=== PATIENT | female | born 1980 | race Caucasian/White ===

== ENCOUNTER 2017-11-04 11:34 | Emergency (ER) | payer OTHER, MEDICAID, SELFPAY ==
[2017-11-04 11:35] VITALS: BP 158/99; PULSE 89; RESP 16; TEMP 36.9; O2SAT 95; BMI 35.6
--- NOTE | 2017-11-04 12:19 | ED.DCSUM_ITS ---
- ER Visit Summary Date of Service: 11/04/17 Chief Complaint: [] Left index finger laceration at work History of Present Illness: The patient is a 36 F [] was cutting bread suffered tip left index finger laceration comes in for evaluation tetanus status update no loss of function other complaints Physical Examination: [] The left index finger there is a very superficial laceration to the lateral tip nail now but uninvolved IP joint uninvolved full range of motion no signs of bony exposure this laceration barely breaks the skin , Test Results: [] Emergency Department Course and Treatment: []I explained to her we could provide wound management with Steri-Strips or sutures she preferred Steri- Strips area was sterilely cleansed, then Steri-Strips were applied standard sterile technique finger splint applied tetanus updated she is instructed on wound care is as a workers comp case all Worker's Comp. paperwork filled out and she is referred to to [facility]. care Treatment Plan: [] Disposition: [] Home stable Impression: [] 1 cm superficial laceration tip left index finger at work This note was generated with TrialScope dictation software. It may contain incorrect words, spelling, and punctuation that were not noted in review of the chart prior to signing ED Disposition - Plan for ED Patient: Chief Complaint: Laceration Referrals: Care Physician,No Primary [Primary Care Provider] -
--- NOTE | 2017-11-04 12:23 | DCINST.ED_ITS ---
ED Disposition - Plan for ED Patient: Chief Complaint: Laceration Instructions: ED Laceration All Referrals: Care Physician,No Primary [Primary Care Provider] - Corporate,[facility] [GROUP OF PHYSICIANS] -
--- NOTE | 2017-11-04 12:23 | ED.DEP ---
ED Disposition - Plan for ED Patient: Chief Complaint: Laceration Instructions: ED Laceration All Referrals: Care Physician,No Primary [Primary Care Provider] - Corporate,[facility] [GROUP OF PHYSICIANS] -
== END 2017-11-04 12:41 | disposition home or self-care (01) ==
PROVIDERS: Emergency Provider Emergency Medicine
DX: S61.211A Laceration without foreign body of left index finger without damage to nail, initial encounter (principal); W26.0XXA Contact with knife, initial encounter; Y93.9 Activity, unspecified; Y92.89 Other specified places as the place of occurrence of the external cause; Y99.9 Unspecified external cause status; Z23 Encounter for immunization
CPT/HCPCS: 99283

== ENCOUNTER → 2018-11-19 16:04 | Outpatient (CLI) | payer MEDICAID, SELFPAY ==
[2018-11-19 22:37] LABS: Chlamydia Trachomatis by PCR Negative (Negative); Neisserai gonorrhoeae by PCR Negative (Negative); Probe Check PASS; Sample Adequacy Control PASS; Specimen Processing Control PASS
[2018-11-22 17:06] LABS: HPV Reflexed? NOT INDICATED
== END ==
PROVIDERS: Visit Provider Obstetrics & Gynecology
DX: Z12.4 Encounter for screening for malignant neoplasm of cervix (principal); Z11.3 Encounter for screening for infections with a predominantly sexual mode of transmission
CPT/HCPCS: 87491; 87591; 88175; G0145

== ENCOUNTER → 2018-12-17 14:47 | Outpatient (CLI) | payer MEDICAID, SELFPAY ==
[2018-12-17 16:00] LABS: Color, Urine Yellow (Yellow); Glucose, Dipstick Normal (Normal); Ketone-Dipstick 5 mg/dl (Negative); Leukocyte Esterase-Dipstick 25 /ul (Negative); Nitrite-Dipstick Negative (Negative); Occult Blood-Urine Negative /ul (Negative); Protein-Dipstick Negative (Negative); Specific Gravity, Urine 1.025 (1.002-1.030); Urine Bilirubin Dipstick Negative (Negative); Urine Clarity Clear (Clear); Urine Urobilinogen Normal (Normal)
[2018-12-17 16:07] LABS: COTININE Drug Screen Positive (<200 ng/mL)
[2018-12-17 16:08] LABS: Absolute Lymphocyte Count 1.96 X10^3/ul (0.83-4.51); Absolute Neutrophil Count 5.3 X10^3/uL (2.0-7.7); Basophil# 0.01 X10^3/uL; Basophil% 0.1 % (0-1); Eosinophil# 0.19 X10^3/uL; Eosinophils% 2.4 % (0-5); Hematocrit 37.9 % (37-47); Hemoglobin 12.4 g/dl (12.0-15.0); Lymphocyte # 1.96 X10^3/ul (4.0); Lymphocyte % 24.4 % (19-41); Mean Corp Hgb Conc 32.7 g/gl (32-36); Mean Corpuscular Hgb 28.1 pg (27.0-32.0); Mean Corpuscular Volume 85.9 fL (81-99); Mean Platelet Vol. 10.8 fl (6.2-12.0); Monocyte# 0.54 X10^3/uL; Monocyte% 6.7 % (0-10); Neutrophil # 5.32 X10^3/uL (2.7-7.7); Neutrophil % 66.2 % (47-70); Platelet Count 273 K/mm3 (150-450); RBC Distribution Width CV 13.3 % (11.6-14.6); Red Blood Count 4.41 M/mm3 (4.2-5.4)
[2018-12-17 16:09] LABS: POSITIVE COUNT NO; POSITIVE DIFFERENTIAL NO; POSITIVE MORPHOLOGY NO
[2018-12-17 16:11] LABS: Amphetamine Urine VISTA NEGATIVE (<1000 ng/mL); Barbiturate Urine VISTA NEGATIVE (< 200 ng/mL); Benzodiazepine Urine VISTA NEGATIVE (< 200 ng/mL); Vista UDS pH Range 5
[2018-12-17 16:12] LABS: Cocaine Urine VISTA NEGATIVE (< 300 ng/mL); Ecstacy Urine VISTA NEGATIVE (< 500 ng/mL); Methadone Urine VISTA NEGATIVE (< 300 ng/mL); PCP Urine VISTA NEGATIVE (< 25 ng/mL); THC Urine VISTA NEGATIVE (< 50 ng/mL)
[2018-12-17 16:30] LABS: Thyroid Stim Hormone (TSH) 2.33 uIU/mL (0.358-3.74)
[2018-12-17 18:28] LABS: HIV - WCH Non-Reactive (Nonreactive); Rubella IgG 64.8 IU/mL
[2018-12-20 01:35] LABS: Prenatal RPR NONREACTIVE (NONREACTIVE)
[2018-12-20 12:54] LABS: HEPATITIS B SURFACE AG Negative (Negative); Hep C Antibodies <0.1 s/co ratio (0.0-0.9)
== END ==
PROVIDERS: Visit Provider Obstetrics & Gynecology
DX: Z34.81 Encounter for supervision of other normal pregnancy, first trimester (principal)
CPT/HCPCS: 36415; 80307; 81002; 84443; 85025; 86703; 86762; 86803; 87340

== ENCOUNTER → 2019-01-30 13:37 | Outpatient (CLI) | payer MEDICAID, SELFPAY | PROVIDERS: Referring Provider Obstetrics & Gynecology; Visit Provider Obstetrics & Gynecology | DX: O26.892 Other specified pregnancy related conditions, second trimester (principal); R30.0 Dysuria; R33.9 Retention of urine, unspecified; Z3A.00 Weeks of gestation of pregnancy not specified | CPT/HCPCS: 87086; 87088; 87186 ==

== ENCOUNTER → 2019-03-06 10:22 | Outpatient (CLI) | payer MEDICAID, SELFPAY | PROVIDERS: Visit Provider Obstetrics & Gynecology | DX: R30.0 Dysuria (principal) | CPT/HCPCS: 87086; 87088 ==

== ENCOUNTER → 2019-04-16 13:23 | Outpatient (CLI) | payer MEDICAID, SELFPAY ==
[2019-04-16 14:05] LABS: Hematocrit 36.2 % (37-47); Hemoglobin 12.1 g/dL (12.0-15.0); Mean Corp Hgb Conc 33.4 g/dL (32-36); Mean Corpuscular Hgb 30.6 pg (27.0-32.0); Mean Corpuscular Volume 91.6 fL (81-99); Mean Platelet Vol. 11.1 fl (6.2-12.0); Platelet Count 204 K/mm3 (150-450); RBC Distribution Width CV 12.3 % (11.6-14.6); Red Blood Count 3.95 M/mm3 (4.2-5.4); White Blood Count 9.3 K/mm3 (4.4-11.0)
[2019-04-16 14:28] LABS: Glucose Challenge Gest 1H 50g 99 mg/dL (70-140)
== END ==
PROVIDERS: Visit Provider Obstetrics & Gynecology
DX: Z34.83 Encounter for supervision of other normal pregnancy, third trimester (principal)
CPT/HCPCS: 36415; 82950; 85027

== ENCOUNTER → 2019-06-02 12:04 | Outpatient (CLI) | payer MEDICAID, SELFPAY ==
[2019-06-02 13:27] LABS: Hematocrit 35.4 % (37-47); Hemoglobin 11.7 g/dL (12.0-15.0); Mean Corp Hgb Conc 33.1 g/dL (32-36); Mean Corpuscular Volume 90.8 fL (81-99); Mean Platelet Vol. 11.9 fl (6.2-12.0); Platelet Count 202 K/mm3 (150-450); RBC Distribution Width CV 12.8 % (11.6-14.6); RBC Distribution Width SD 41.9 fl (35.1-43.9); White Blood Count 9.1 K/mm3 (4.4-11.0)
[2019-06-02 13:33] LABS: Prothrombin Time (Protime)PT. 12.7 SECONDS (11.7-14.9)
[2019-06-02 13:34] LABS: Partial Thromboplast Time 27.5 Seconds (24.1-36.2)
[2019-06-02 13:43] LABS: AST(SGOT) 26 U/L (15-37); Alanine Aminotransfer ALT/SGPT 29 U/L (13-56); Uric Acid 3.3 mg/dL (2.6-6.0)
== END ==
PROVIDERS: Visit Provider Obstetrics & Gynecology
DX: O13.9 Gestational [pregnancy-induced] hypertension without significant proteinuria, unspecified trimester (principal)
CPT/HCPCS: 36415; 84450; 84460; 84550; 85027; 85610; 85730; 87081

== ENCOUNTER → 2019-06-04 11:10 | Outpatient (CLI) | payer MEDICAID, SELFPAY ==
[2019-06-04 14:22] LABS: 24 Hour Urine Protein 331.6 mg/24HR (<150 MG/24HR); 24HR. UA Prot. Total Volume 1375 mL; Protein, Urine (Random) 21.1 mg/dL (<11.9); Protein:Creat Ratio 275 mg/g CRE (0-200); Urine Protein (24 Hour) 21.1 mg/dL (<11.9)
== END ==
PROVIDERS: Visit Provider Obstetrics & Gynecology
DX: O13.9 Gestational [pregnancy-induced] hypertension without significant proteinuria, unspecified trimester (principal)
CPT/HCPCS: 81050; 82570; 84156

== ENCOUNTER 2019-06-06 17:20 | Inpatient (IN) | payer MEDICAID, SELFPAY ==
[2019-06-06 17:44] VITALS: BMI 39.6
[2019-06-06] MEDS: miSOPROStol 25 MCG TABLET PO ×2 (19:31→23:31)
--- NOTE | 2019-06-06 19:35 | HP.PCM_ITS ---
History and Physical ACOG ANTEPARTUM RECORD - HISTORY AND PHYSICAL (06/06/2019) Name: MARY SIMENTAL OB Physician: KAPIL Hurricane's Physician: Dr Bear Dixon ...................................................................... : 1980 Age: 38 Address: [address] [place] [address] [address] RUI S[address]ER, [id number] Phone: [phone] (O) [phone] Insurance Carrier: [facility] CLAIMS DEPT [phone] Emergency Contact: MICHOACANO ANTHONY [phone] ...................................................................... Final DOROTHY: 06/25/19 By Ultrasound: 12 weeks 6 days Mary is a 31yo at 37w 37w2d gestation by L=12w6d US admitted for medically necessary IOL for preeclampsia as evidenced by elevated blood pressures and proteinuria. She has a history of alcoholism, and IV drug abuse and is currently on Suboxone; She reports active FM, denies VB, LOF, SMITH, epigastric pain, nausea or visual disturbances. A Group B Strep culture is pending, she has no risk factors at this time. PARITY: (G-Total Pregnancies P-Fullterm,Premature,Induced AB,Spont AB, Ectopics, Multiple,Living) DOROTHY CONFIRMATION: By LMP: 09/18/18 Initial Exam: 06/25/19 By First Ultrasound Exam: 06/21/19 Final DOROTHY: 06/25/19 BLOOD TYPE: AFP: 1 HR PG: GBS: Original Ordering Provider: Aleksandra Kebede titer (>10 immune)-- Hepatatis B nick AG-- CULTURES:-- OB PROBLEM LIST: Declines AFP and CF tests. Recovering alcoholic/drug user. On Suboxone. Enjoying 2 1/2 yo daughter and new job at [employer] in [place]. FOB not involved but ok relationship with him. ALLERGIES: No Known Allergies MEDICATIONS: Colace 100 mg capsule one capsule po twice daily omeprazole 40 mg capsule,delayed release one tab PO daily One A Day Women's DHA 28 mg iron-800 mcg oral pack daily Suboxone 8 mg-2 mg sublingual film One pill by mouth twice a day Zofran 4 mg tablet one tab PO every 6 hours as needed for nausea SOCIAL HISTORY: Smoking - used to smoke but quit and denies 08/2016 Alcohol Use - Recovering Alcoholic Diet - balanced Diet and 2 cups coffee daily. Water intake tries for one liter daily. Lifestyle - moderate stress lifestyle Exercise - active work and Enc to walk 20 min day. 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 NONE now. Sexual Activity - ACTIVE ONE PARTNER Residence - rents an apartment and LIves w daughter. Place of - [place] Hours Worked - 30 wk Spouse-Sig Other Name - NOT involved. Children Name(s) - Marta PRIOR DELIVERY HISTORY DEL DATE GEST LAB WT LB WT OZ TYPE ANES LABOR TX Apr 01 8 0 0 0 Vag None No Aug 30 10 0 0 0 Vag None No Aug 12 6 0 0 0 Vag None No Jul 05 37 24 6 7 Vag Epidural No ANTEPARTUM FLOW CHART VISIT GE RTC FU F F OR U U DATE WK MD WKS HT PN HR M SS BP ED WT OR GL D EF ST __ ____ ___ __ __ ___ __ __ __ ___ __ __ __ ___ __ 18 May KW 6 37 V + + 170/100 1+ 253 tr - 1 50 -3 14 May ELB 1 37 V + + 160/94 0 248 tr - cl TH hi Apr JMW 2 35 + + 138/86 sl 249 tr - Apr 18 JMW 2 32 + + 110/68 0 241 tr - Mar 13 JMW 3 25 + + 136/80 0 238 tr - Feb 04 DS 4 19 ? + + 142/86 0 223 tr - January 03 JMW 4 17 + + 130/80 0 225 - - Nov 29 DS 4 12 ? + O 126/68 220 - - ANTEPARTUM NOTE(S): Jun 06 2019: see note Jun 02 2019: see note May 08 2019: Feeling Well,Good FM Apr 16 2019: feeling well. Glucola drawn today. Mar 12 2019: Glucola/Instructions Given, Good FM Jan 28 2019: comp u/s today, nausea increasing again Jan 16 2019: feeling well. Nausea seems to be getting better. Dec 17 2018: No problems COMPREHENSIVE ANTEPARTUM NOTE(S): Jun 06 2019: Mary is being seen for PNV. Pt denies smith, blurred vision, and dizziness. Repeat BP left side lying 150/70. Repeat sitting 152/90. AM Jun 06 2019: Elevaed blood pressures, denies visual changes, epigastric pain nausea or SMITH; reflexes 2+ bilateral LE, lungs cta; reports active FM, denies VB, LOF; reviewed labs, d/w Dr. Arita, consents read and signed, pt to [facility] within the hour for IOL; RTO 6 weeks for PP visit Jun 02 2019: Mary is here for visit. B/P is elevated today in office, 150/110 regular cuff, 160/94 large cuff. States very stressed about new baby and finances, childcare a huge issue. FOB is not involed and he will not be at all supportive. She is feeling good mvmt. Reviewed FM, SROM, and labor. GBS today, LARC consent signed but she will discuss further as not certain which one she is intested in. LMT May 08 2019: Feeling well; reports active FM; denies UCs, VB, LOF; discussed warning signs, s/s Labor, when to call/come in; RTO 2 weeks for PNV - KVW Mar 06 2019: Mary called @ 24 wks 1 day with burning, pain and frequency urination. Added to nurse schedule. Long dip CCMS showing sp gr 1.000, ph6, large blood, 2+. Per discussion w/Dr. Perry, urine sent for C+S. Rx Macrobid and Pyridium sent to [facility] in [place]. Reviewed instructions for taking meds w/pt. Continue to hydrate w/plenty of water. Jan 30 2019: Mary is here at 19 w 1 d for a UTI check. She states that since she woke up this morning that she has urgency, but can barely void. NKA confirmed. Pharmacy confirmed. Denies recent IC. Denies constipation. CCMS urine specimen obtained. Urine is tramaine and very cloudy. Long urine dip shows: LARGE leukocytes, 2+ protein, 3+ blood, pH is 5.0, and specific gravity is 1.030; all other values are NEG. Temp: 98.4 (orally), B/P: 116/72 (left arm, reg cuff, sitting). She reports good FM. Denies spotting/cramping. Encouraged to increase her water intake, she states that she has not been drinking enough water lately, but drank a lot of juice yesterday. Discussed sugars in juices, and that sugars can contribute to dehydration. Encouraged to drink less sugary drinks and to stop caffeine use at this time. Proper bathroom/bedroom hygiene discussed. She states that she started wearing a thong last week, discussed that it would be a good idea to start wearing underwear with a cotton crotch, she states that she will do this. Report to Dr. Elizondo, urine to be sent for C+S, and he escripted Macrobid and Pyridium to Mary's pharmacy. All orders relayed to Mary, she is aware of C+S result time being 2-3 days, to complete her entire dose of medication unless she hears otherwise from this office, that Pyridium will color her urine red-orange; she states that she understands all, and will call the office if her s/s do not improve or become worse. AW Jan 28 2019: Doing well. Anatomical survey US shows no anomalies, normal growth and placentation. Feeling movement. Dec 17 2018: Doing well except continued nausea and constipation. Colace prescribed. NOB nurse intake and labs done today. US c/w LMP dating. Dec 17 2019: Mary is here for NOB nurse visit w DOROTHY 06-25-19 planning a vag del at [facility] with an epidural, using Dr Bear Dixon for post disch ped care and to breastfeed. She is a G 5 P 1 with Sabs x 3. Mary has a 2 1/2 yo daughter with whom she lives. 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 She relates she is happier than she's ever been- is off drugs and alcohol, not smoking and is on Suboxone. Her daughter is her nick. FOB is not involved although they maintain a friendly if neutral relationship. Mary has NKA to meds. She experiences throat swelling if she eats salmon and has multiple allergies to dust and pollens. Her diet sounds balanced w two cups of coffee per day and about one liter of water. Suggested doubling that amount. Importance of protein in her diet discussed. She is busy and on her feet at work and just can't exercise. Walking 15-20 min daily suggested. Genetics Screening form completed noting no family issues. She declines AFP and CF tests. Warning signs in pg reviewed as well as reaching the office after hours, otc meds ok to take, wearing seatbelt very low on her abdomen, lifting restriction of 25# whenever possible to prevent back strain, She voices understanding. Detailed history updated. She has a copy of What to Expect. US done today and routine labs drawn. Mary had some issues with low milk supply with first baby and asks about likelihood of recurrence. Alana Dyer's book Making More Milk suggested as well as WIC or office Class. She is agreeable to these. Enc to call w any concerns. Visit lasted approx 40 min. Earline ALLEN. Nov 19 2018: Mary is being seen for missed menses. LMP 09-18-18. Pt is about 8 weeks and 6 days. DOROTHY 06-25-19. Medictiations and allergies are up to date. Pt is due for pap and cultures. information gone over and reviewed. AM REVIEW OF SYSTEMS: GENERAL - Denies fever, or chills SKIN - Denies rash, new skin lesions, or change in moles EYES - Denies blurred vision, or change in visual acuity EARS - Denies ear pain, or difficulty hearing NOSE - Denies nasal congestion, discharge, or bleeding MOUTH - Denies sore throat, or difficulty swallowing NECK - Denies pain or swelling RESPIRATORY - Denies shortness of breath, cough, wheezing CARDIOVASCULAR - Denies palpitations, chest pain, orthopnea, PND, peripheral edema, syncope or claudication GASTROINTESTINAL - Denies nausea, vomiting, diarrhea, constipation, Denies abdominal pain, melena and or bright red blood GENITOURINARY - Denies dysuria, frequency of urination, urgency, or hesitancy MUSCULOSKELETAL - Denies joint or muscle pain, or back pain NEUROLOGICAL - Denies localized numbness, weakness, or tingling PSYCHIATRIC - Denies depression, anxiety, substance abuse or suicide attempts ENDOCRINE - Denies heat or cold intolerance, weight loss or gain, increasing thirst HEMATO-IMMUNOLOGIC - Denies easy bruising, bleeding, oral ulcerations or recurrent infections GENETICS SCREENING: Age 35+ years: No Thalassemia: No Neural Tube Defect: No Down Syndrome: No HALLE-SACHS: No Sickle Cell Disease: No Hemophilia: No Musc. Dystrophy: No Cystic Fibrosis: No-declines screening [place] Chorea: No Mental Retardation: No Fragile X: No Other genetic: No Other defects: No SABs/still births: No Drugs since LMP: Yes INFECTION HISTORY: High risk AIDS: No High risk Hepatitis: No Exposed to TB: No Exposed to Herpes: No Rash/viral illness since LMP: No History of STD: No MENSTRUAL HISTORY: *Menses Amount/Duration: 6 daysMenses Regularity: RegularFrequency: monthlyMenarche (Age Onset): 15* PAST SUMMARY: PARITY: 1. Total Pregnancies............ 5 2. Full Term Pregnancies........ 1 3. Premature.................... 0 4. Abortions - Induced.......... 3 5. Abortions - Spontaneous...... 0 6. Ectopics..................... 0 7. Multiple Births.............. 0 8. Living Children.............. 1 PAST #1: Date of :.................. 08/20/10 Gestation Weeks:................ 10 Length of labor(hours):......... 0 Sex:............................ UNKNOWN Weight-lbs:............... 0 Weight-oz:................ 0 Type of Delivery:............... Vag Type of Anesthesia:............. None Place of Delivery:.............. HOME Treatment of Labor?:.... No Comment: TAB VIA [employer] FROM WEBSITE. PAST #2: Date of :.................. 08/20/11 Gestation Weeks:................ 6 Length of labor(hours):......... 0 Sex:............................ UNKNOWN Weight-lbs:............... 0 Weight-oz:................ 0 Type of Delivery:............... Vag Type of Anesthesia:............. None Place of Delivery:.............. HOME Treatment of Labor?:.... No Comment: TAB VIA [employer] PAST #3: Date of :.................. 03/20/13 Gestation Weeks:................ 8 Length of labor(hours):......... 0 Sex:............................ UNKNOWN Weight-lbs:............... 0 Weight-oz:................ 0 Type of Delivery:............... Vag Type of Anesthesia:............. None Place of Delivery:.............. HOME Treatment of Labor?:.... No Comment: TAB VIA [facility]. PAST #4: Date of :.................. 07/12/16 Gestation Weeks:................ 37 Length of labor(hours):......... 24 Sex:............................ F Weight-lbs:............... 6 Weight-oz:................ 7 Type of Delivery:............... Vag Type of Anesthesia:............. Epidural Place of Delivery:.............. Abi Treatment of Labor?:.... No Comment: LONG IND. Labs for : MARY SIMENTAL since 09/28/2018 ORDER DATEIN DESCRIPTION VALUE UNITS RANGE A+ COMMENT PROTEIN, URINE 24HR 06/04/19 NOTE Original Ordering Provider: Mary Arita UR COLLECT TIME 21.0 HOURS 24.0 LL UR TOTAL VOLUME 1375 mL URINE PROTEIN 21.1 mg/dL <11.9 H 24HR UR PROTEIN 331.6 mg/24HR <150 MG/24HR H PROTEIN+CREATININE RATIO,URINE 06/04/19 NOTE Original Ordering Provider: Mary Arita UR CREAT 76.80 mg/dL NO RANGE EST. PROTEIN,UR.RAN. 21.1 mg/dL <11.9 H PROT:CRE RATIO 275 mg/g CRE 0-200 H Reviewed by TEJAL ALANINE AMINOTRANSFERAS (SGPT) 06/02/19 NOTE Original Ordering Provider: Mary Arita ALTw 29 U/L 13-56 Reviewed by MARY AST(SGOT) 06/02/19 NOTE Original Ordering Provider: Mary Arita AST 26 U/L 15-37 Reviewed by MARY URIC ACID 06/02/19 NOTE Original Ordering Provider: Mary Arita URIC 3.3 mg/dL 2.6-6.0 The drugs N-Acetylcysteine and Metamizole may falsely depress this assay. Reviewed by MARY PARTIAL THROMBOPLAST TIME 06/02/19 NOTE Original Ordering Provider: Mary Arita PTT 27.5 Seconds 24.1-36.2 Reviewed by MARY PROTHROMBIN TIME W/INR 06/02/19 NOTE Original Ordering Provider: Mary Arita PROTIME 12.7 SECONDS 11.7-14.9 INR 1.0 Reviewed by MARY CBC-COMPLETE BLOOD CNT NO DIFF 06/02/19 NOTE Original Ordering Provider: Mary Arita WBC 9.1 K/mm3 4.4-11.0 RBC 3.90 M/mm3 4.2-5.4 L HGB 11.7 g/dL 12.0-15.0 L HCT 35.4 % 37-47 L MCV 90.8 fL 81-99 MCH 30.0 pg 27.0-32.0 MCHC 33.1 g/dL 32-36 RDW CV 12.8 % 11.6-14.6 RDW SD 41.9 fl 35.1-43.9 PLT 202 K/mm3 150-450 MPV 11.9 fl 6.2-12.0 Reviewed by MARY GLUCOSE CHALLENGE GEST 1H 50G 04/16/19 NOTE Original Ordering Provider: Tejal Perry GLU GEST 50G 1H 99 mg/dL 70-140 Reviewed by TEJAL CBC-COMPLETE BLOOD CNT NO DIFF 04/16/19 NOTE Original Ordering Provider: Tejal Perry WBC 9.3 K/mm3 4.4-11.0 RBC 3.95 M/mm3 4.2-5.4 L HGB 12.1 g/dL 12.0-15.0 HCT 36.2 % 37-47 L MCV 91.6 fL 81-99 MCH 30.6 pg 27.0-32.0 MCHC 33.4 g/dL 32-36 RDW CV 12.3 % 11.6-14.6 RDW SD 41.0 fl 35.1-43.9 PLT 204 K/mm3 150-450 MPV 11.1 fl 6.2-12.0 Reviewed by TEJAL STRANGE, URINE 03/06/19 NOTE Original Ordering Provider: Tejal Perry Urine Culture ORGANISM 1: Mixed Gram Pos AND Gram Neg Org [place] Count 11,000-25,000 MIX CULTURE Mixed contaminants. Submit a new specimen if indicated. Reviewed by TEJAL STRANGE, URINE 01/30/19 NOTE Original Ordering Provider: Gibran Elizondo Urine Culture ORGANISM 1: Presumptive E. coli [place] Count 25,000-50,000 ORGANISM 2: Mixed Gram Positive Organisms [place] Count 1000-10,000 Presumptive E. coli: REACTION Ampicillin $ <=2 S Ampicillin/Sulbactam $ <=2 S Cefazolin $ <=4 S Cefepime $ <=0.12 S Ceftazidime *NF <=1 S Ceftriaxone $ <=0.25 S Ciprofloxacin $ <=0.25 S Ertapenim $$$ <=0.12 S ESBL NEG Gentamicin $ <=1 S Imipenem *NF <=0.25 S Levofloxacin $ <=0.12 S Nitrofurantoin $ <=16 S Piperacillin/Tazobactam $$ <=4 S Tobramycin $ <=1 S Trimethoprim/Sulfametho $ <=20 S (NF) indicates non-formulary drug at [facility]. Approval by Infectious Disease Specialist required before non-formulary drugs may be ordered and/or dispensed. Reviewed by GIBRAN Reviewed by GIBRAN HEPATITIS C ANTIBODIES 12/17/18 NOTE Original Ordering Provider: Gibran Elizondo HEP C AB <0.1 s/co ratio 0.0-0.9 Negative: < 0.8 Indeterminate: 0.8 - 0.9 Positive: > 0.9 The CDC recommends that a positive HCV antibody result be followed up with a HCV Nucleic Acid Amplification test (971736). w Reviewed by GIBRAN HEPATITIS B SURFACE AG 12/17/18 NOTE Original Ordering Provider: Gibran Elizondo HB SURF AG Negative Negative Performed at: [address] [id number] Sheet Metal Fabricator: Jeanmarie Jung PhD, Phone: [phone] Reviewed by GIBRAN RPR 12/17/18 NOTE Original Ordering Provider: Gibran Elizondo RPR NONREACTIVE NONREACTIVE Reviewed by GIBRAN T AND S-NO CHARGE W/PNP 12/17/18 Reason for Type AND Screen/Red Cells: Surgery? N [facility]~[address] [place], [address]~ BLOOD TYPE GEL O POSITIVEw N AB SCREEN GEL NEGATIVE N Reviewed by GIBRAN HIV - [facility] 12/17/18 NOTE w Original Ordering Provider: Gibran Elizondo HIV - WC Non-Reactive Nonreactive Reviewed by GBIRAN RUBELLA IGG 12/17/18 NOTE Original Ordering Provider: Gibran Elizondo RUBELLA IGG 64.8 IU/mL Antibody results Interpretation of Immune Status < 5 IU/ml Presumed Non-immune 5 - < 10 IU/ml Equivocal > or = 10 IU/ml Presumed Immune Reviewed by GIBRAN THYROID STIM HORMONE (TSH) 12/17/18 NOTE w Original Ordering Provider: Gibran Elizondo TSH 2.33 uIU/mL 0.358-3.74 Reviewed by GIBRAN NICOTINE URINE DRUG SCREEN 12/17/18 NOTE Original Ordering Provider: Gibran Elizondo TO BE CONFIRMED CONFIRMATORY TESTING FOR ALL POSITIVE URINE DRUG SCREEN RESULTS WILL ONLY BE SENT OUT UPON PHYSICIAN ORDER. The results of Urine Drug Screen methods provide only preliminary analytical test results. A more specific alternate chemical method must be used in order to obtain a confirmed analytical result. Gas chromatography/mass spectrometery (GC/MS) is the preferred confirmatory method. Clinical consideration and professional judgement should be applied to any drug of abuse test result, particularly when preliminary positive results are used. COT DRG SCREEN Positive <200 ng/mL H Cotinine is the first-stage metabolite of Nicotine. Reviewed by GIBRAN URINE DRUG SCREEN (VISTA) 12/17/18 NOTE Original Ordering Provider: Gibran Elizondo TO BE CONFIRMED CONFIRMATORY TESTING FOR ALL POSITIVE URINE DRUG SCREEN RESULTS WILL ONLY BE SENT OUT UPON PHYSICIAN ORDER. VISTA Urine Drug Screen methods provide only preliminary analytical test results. A more specific alternate chemical method must be used in order to obtain a confirmed analytical result. Gas chromatography/mass spectrometery (GC/MS) is the preferred confirmatory method. Clinical consideration and professional judgement should be applied to any drug of abuse test result, particularly when preliminary positive results are used. URINE TCA TESTING MUST BE ORDERED SEPARATELY. USE TEST MNEMONIC: [place] UDS PH 5 AMPHETAMINES NEGATIVE <1000 ng/mL BARBITIURATES NEGATIVE < 200 ng/mL BENZODIAZIPINE NEGATIVE < 200 ng/mL COCAINE NEGATIVE < 300 ng/mL ECSTACY NEGATIVE < 500 ng/mL METHADONE NEGATIVE < 300 ng/mL OPIATES NEGATIVE < 300 ng/mL PCP NEGATIVE < 25 ng/mL THC NEGATIVE < 50 ng/mL Reviewed by GIBRAN CBC W/DIFF, AUTOMATED 12/17/18 NOTE Original Ordering Provider: Gibran Elizondo WBC 8.0 K/mm3 4.4-11.0 RBC 4.41 M/mm3 4.2-5.4 HGB 12.4 g/dl 12.0-15.0 HCT 37.9 % 37-47 MCV 85.9 fL 81-99 MCH 28.1 pg 27.0-32.0 MCHC 32.7 g/gl 32-36 RDW CV 13.3 % 11.6-14.6 RDW SD 41.0 fl 35.1-43.9 PLT 273 K/mm3 150-450 MPV 10.8 fl 6.2-12.0 NEUT% 66.2 % 47-70 LY% 24.4 % 19-41 MONO% 6.7 % 0-10 EO% 2.4 % 0-5 w BASO% 0.1 % 0-1 IM GRAN % 0.200 % 0.0-0.9 IG% - Immature Granulocytes (promyelocytes, myelocytes and metamyelocytes) > 1% indicates that a LEFT SHIFT is Present. ABSOLUTE NEUT 5.3 X10 3/uL 2.0-7.7 ABSOLUTE LYMPH 1.96 X10 3/ul 0.83-4.51 Reviewed by GIBRAN URINALYSIS, ROUTINE (DIPSTICK) 12/17/18 NOTE Original Ordering Provider: Gibran Elizondo COLOR Yellow Yellow CLARITY Clear Clear GLUCOSE, UR Normal mg/dl Normal BILIRUBIN URINE Negative mg/dL Negative KETONE UR 5 mg/dl Negative H SP.GR. DIPSTX 1.025 1.002-1.030 PH UR 5.0 5.0 - 8.0 PROT DIPSTX Negative mg/dl Negative UROBILI Normal mg/dl Normal NITRITE UR Negative Negative OCCULT BLOOD-UR Negative /ul Negative LEUK ESTERASE 25 /ul Negative H Reviewed by GIBRAN Reviewed by GIBRAN Reviewed by GIBRAN PAP I-G W/RFX HRHPV 11/19/18 NOTE Original Ordering Provider: Gibran Elizondo DIAGN . NEGATIVE FOR INTRAEPITHELIAL LESION OR MALIGNANCY. THIS SPECIMEN WAS RESCREENED PART OF OUR COMB FIXER PROGRAM. ADEQ . Satisfactory for evaluation. Endocervical and/or squamous metaplastic cells (endocervical component) are present. PERFORM . Danielle Garcia, Tomato Grader (ASCP) QC REV . Ashlee Arriaga, Tomato Grader (ASCP) TEST METHOD . This liquid based ThinPrep(R) pap test was screened with the use of an image guided system. COMM . . PAPSMR . The Pap smear is a screening test designed to aid in the detection of premalignant and malignant conditions of the uterine cervix. It is not a diagnostic procedure and should not be used as the sole means of detecting cervical cancer. Both false-positive and false-negative reports do occur. HPV RFLX . The HPV DNA reflex criteria were not met with this specimen result therefore, no HPV testing was performed. Performed at: [address] [id number] Sheet Metal Fabricator: Jayashree Valdez MD, Phone: [phone] Reviewed by GIBRAN CT/LAURYN [facility] BY PCR 11/19/18 NOTE Original Ordering Provider: Gibran Elizondo [place] PCR Negative Negative LAUR[facility] BY PCR Negative Negative Reviewed by [facility] PROVIDER SIGNATURE ( REQUIRED) PHYSICAL EXAMINATION General Appearence: 38 yo female in no acute distress Vital Signs: AF, VSS Heart: RRR without rubs or gallops Lungs: CTA x 2 Breasts: deferred Abdomen: gravid Pelvis: Cervix: 50/-3 in office today Presentation: cephalic, verified by bedside US on admission Fetus: Size: AGA Movement: present Heart: 130 baseline,moderate variability, with accels, no decels Impression: 31yo at 37w 37w2d gestation by L=12w6d Preeclampsia Hx of alcoholism, IV drug abuse, on Suboxone GBS culture pending, no risk factors at this time Cat 1 FHTs Plan: Cervical ripening with PO Cytotec protocol followed by Pitocin IOL Continuous EFM Hourly BPs
[2019-06-06 19:51] LABS: Absolute Lymphocyte Count 1.78 X10^3/uL (0.83-4.51); Absolute Neutrophil Count 7.3 X10^3/uL (2.0-7.7); Basophil# 0.03 X10^3/uL; Basophil% 0.3 % (0-1); Eosinophil# 0.09 X10^3/uL; Eosinophils% 0.9 % (0-5); Hematocrit 34.9 % (37-47); Hemoglobin 11.2 g/dL (12.0-15.0); Lymphocyte # 1.78 X10^3/ul (4.0); Lymphocyte % 17.9 % (19-41); Mean Corp Hgb Conc 32.1 g/dL (32-36); Mean Corpuscular Hgb 29.3 pg (27.0-32.0); Mean Corpuscular Volume 91.4 fL (81-99); Mean Platelet Vol. 11.7 fl (6.2-12.0); Monocyte# 0.66 X10^3/uL; Monocyte% 6.6 % (0-10); NRBC Flagged by Analyzer 0 % (0-5); Neutrophil # 7.28 X10^3/uL (2.7-7.7); Neutrophil % 73.4 % (47-70); Platelet Count 191 K/mm3 (150-450); RBC Distribution Width CV 12.5 % (11.6-14.6); RBC Distribution Width SD 41.1 fl (35.1-43.9); Red Blood Count 3.82 M/mm3 (4.2-5.4); White Blood Count 9.9 K/mm3 (4.4-11.0)
[2019-06-06 19:54] LABS: Partial Thromboplast Time 28.4 Seconds (24.1-36.2)
[2019-06-06 19:58] LABS: AST(SGOT) 21 U/L (15-37); Alanine Aminotransfer ALT/SGPT 23 U/L (13-56); Creatinine, Serum 0.47 mg/dL (0.55-1.02); EST Glomerular Filtration Rate 157 mL/min (>60); Est Glom Filt Rate - Afr Amer 190 mL/min (>60); Estimated Creatinine Clearance 159.37 ml/min; Uric Acid 3.8 mg/dL (2.6-6.0)
[2019-06-06 19:58] LABS: Protein, Urine (Random) 12.9 mg/dL (<11.9); Protein:Creat Ratio 304 mg/g CRE (0-200)
[2019-06-07 02:48] LABS: TCA Internal Control -Neg LINE = VALID (- VALID); TCA Urine Drug Screen Negative (<1000 ng/mL)
[2019-06-07 03:05] LABS: Amphetamine Urine VISTA NEGATIVE (<1000 ng/mL); Barbiturate Urine VISTA NEGATIVE (< 200 ng/mL); Benzodiazepine Urine VISTA POSITIVE (< 200 ng/mL); Cocaine Urine VISTA NEGATIVE (< 300 ng/mL); Ecstacy Urine VISTA NEGATIVE (< 500 ng/mL); Methadone Urine VISTA NEGATIVE (< 300 ng/mL); PCP Urine VISTA NEGATIVE (< 25 ng/mL); THC Urine VISTA NEGATIVE (< 50 ng/mL); Vista UDS pH Range 6
[2019-06-07] MEDS: miSOPROStol 25 MCG TABLET PO ×2 (03:25→07:24)
--- NOTE | 2019-06-07 03:29 | PCM.PN.OB ---
Subjective: Sleeping, rouses easily, reports minimal cramping; upon being informed of presence of benzodiazepine in urine, states she was anxious about high blood pressures and took Ativan from an old prescription to calm herself down Objective: AVSS FHTs: 130 baseline, moderate variability, no accels, no decels UCs: None Cervix: 50/-3, minimal change from previous exam - Physical Exam General: Alert, Oriented x3, Cooperative, No apparent distress HEENT: PERRLA, EOMI Oral: Moist Mucosa Neck: Supple Neurological: Cranial nerves II-XII grossly intact Psych/Mental Status: Normal Affect, Appropriate, Alert and oriented to time, place, person, mood and affect Weight: 253 lb 1.451 oz Body Mass Index (BMI) 39.6 Laboratory Tests Past 24 Hrs 06/06/19 06/06/19 06/06/19 18:50 18:50 18:50 WBC 9.9 RBC 3.82 L Hgb 11.2 L Hct 34.9 L MCV 91.4 MCH 29.3 MCHC 32.1 RDW Std Deviation 41.1 RDW Coeff of Roman 12.5 Plt Count 191 MPV 11.7 Immature Gran % (Auto) 0.900 Neut % (Auto) 73.4 H Lymph % (Auto) 17.9 L [place] % (Auto) 6.6 Eos % (Auto) 0.9 Baso % (Auto) 0.3 Absolute Neuts (auto) 7.3 Absolute Lymphs (auto) 1.78 Nucleated RBC % 0 PT 13.0 INR 1.0 APTT 28.4 Creatinine Estim Creat Clear Calc Est GFR (MDRD) Af Amer Est GFR (MDRD) Non-Af Uric Acid AST ALT U Random Total Protein Urine Creatinine Protein/Creatinin Ratio Urine Opiates Screen Urine Methadone Screen Ur Barbiturates Screen Tricyclics Screen Ur Phencyclidine Scrn Ur Amphetamines Screen U Methamphetamin-MDMA U Benzodiazepines Scrn Urine Cocaine Screen U Cannabinoids Screen Ur Drug Screen Comment Blood Type O POSITIVE Antibody Screen NEGATIVE 06/06/19 06/06/19 06/07/19 18:50 19:00 02:25 WBC RBC Hgb Hct MCV MCH MCHC RDW Std Deviation RDW Coeff of Roman Plt Count MPV Immature Gran % (Auto) Neut % (Auto) Lymph % (Auto) [place] % (Auto) Eos % (Auto) Baso % (Auto) Absolute Neuts (auto) Absolute Lymphs (auto) Nucleated RBC % PT INR APTT Creatinine 0.47 L Estim Creat Clear Calc 159.37 Est GFR (MDRD) Af Amer 190 Est GFR (MDRD) Non-Af 157 Uric Acid 3.8 AST 21 ALT 23 U Random Total Protein 12.9 H Urine Creatinine 42.50 Protein/Creatinin Ratio 304 H Urine Opiates Screen NEGATIVE Urine Methadone Screen NEGATIVE Ur Barbiturates Screen NEGATIVE Tricyclics Screen Ur Phencyclidine Scrn NEGATIVE Ur Amphetamines Screen NEGATIVE U Methamphetamin-MDMA NEGATIVE U Benzodiazepines Scrn POSITIVE H Urine Cocaine Screen NEGATIVE U Cannabinoids Screen NEGATIVE Ur Drug Screen Comment Blood Type Antibody Screen 06/07/19 02:25 WBC RBC Hgb Hct MCV MCH MCHC RDW Std Deviation RDW Coeff of Roman Plt Count MPV Immature Gran % (Auto) Neut % (Auto) Lymph % (Auto) [place] % (Auto) Eos % (Auto) Baso % (Auto) Absolute Neuts (auto) Absolute Lymphs (auto) Nucleated RBC % PT INR APTT Creatinine Estim Creat Clear Calc Est GFR (MDRD) Af Amer Est GFR (MDRD) Non-Af Uric Acid AST ALT U Random Total Protein Urine Creatinine Protein/Creatinin Ratio Urine Opiates Screen Urine Methadone Screen Ur Barbiturates Screen Tricyclics Screen Negative Ur Phencyclidine Scrn Ur Amphetamines Screen U Methamphetamin-MDMA U Benzodiazepines Scrn Urine Cocaine Screen U Cannabinoids Screen Ur Drug Screen Comment Blood Type Antibody Screen Medical Necessity - Tobacco Use Smoking Status: Former smoker Assessment/Plan All Active Problems Gestational hypertension (Acute) 37 weeks gestation of (Acute) IVDU (intravenous drug user) (Acute) Assessment: 31yo at 37w 37w2d gestation by L=12w6d Preeclampsia Hx of alcoholism and IV drug abuse, on Subutex Urine positive for benzodiazepenes GBS culture pending, no risk factors at this time Cat 1 FHTs Plan: Continue with Cytotec cervical ripening protocol Plan Ship Boat Or Barge Mate at delivery
--- NOTE | 2019-06-07 08:56 | PN.OBGYN_ITS ---
Subjective: Feeling a little crampier Objective: AVSS FHTs:130 baseline, moderate variability, with accels, no decels UCs:Q 4-6 Cervix: 2.5/50/-3, soft, mid position - Physical Exam General: Alert, Oriented x3 HEENT: PERRLA, EOMI Oral: Moist Mucosa Neck: Supple Neurological: Cranial nerves II-XII grossly intact, Deep Tendon Reflexes 2+/4 and Symmetrical Psych/Mental Status: Normal Affect, Appropriate, Alert and oriented to time, place, person, mood and affect Weight: 253 lb 1.451 oz Body Mass Index (BMI) 39.6 Laboratory Tests Past 24 Hrs 06/06/19 06/06/19 06/06/19 18:50 18:50 18:50 WBC 9.9 RBC 3.82 L Hgb 11.2 L Hct 34.9 L MCV 91.4 MCH 29.3 MCHC 32.1 RDW Std Deviation 41.1 RDW Coeff of Roman 12.5 Plt Count 191 MPV 11.7 Immature Gran % (Auto) 0.900 Neut % (Auto) 73.4 H Lymph % (Auto) 17.9 L [place] % (Auto) 6.6 Eos % (Auto) 0.9 Baso % (Auto) 0.3 Absolute Neuts (auto) 7.3 Absolute Lymphs (auto) 1.78 Nucleated RBC % 0 PT 13.0 INR 1.0 APTT 28.4 Creatinine Estim Creat Clear Calc Est GFR (MDRD) Af Amer Est GFR (MDRD) Non-Af Uric Acid AST ALT U Random Total Protein Urine Creatinine Protein/Creatinin Ratio Urine Opiates Screen Urine Methadone Screen Ur Barbiturates Screen Tricyclics Screen Ur Phencyclidine Scrn Ur Amphetamines Screen U Methamphetamin-MDMA U Benzodiazepines Scrn Urine Cocaine Screen U Cannabinoids Screen Ur Drug Screen Comment Blood Type O POSITIVE Antibody Screen NEGATIVE 06/06/19 06/06/19 06/07/19 18:50 19:00 02:25 WBC RBC Hgb Hct MCV MCH MCHC RDW Std Deviation RDW Coeff of Roman Plt Count MPV Immature Gran % (Auto) Neut % (Auto) Lymph % (Auto) [place] % (Auto) Eos % (Auto) Baso % (Auto) Absolute Neuts (auto) Absolute Lymphs (auto) Nucleated RBC % PT INR APTT Creatinine 0.47 L Estim Creat Clear Calc 159.37 Est GFR (MDRD) Af Amer 190 Est GFR (MDRD) Non-Af 157 Uric Acid 3.8 AST 21 ALT 23 U Random Total Protein 12.9 H Urine Creatinine 42.50 Protein/Creatinin Ratio 304 H Urine Opiates Screen NEGATIVE Urine Methadone Screen NEGATIVE Ur Barbiturates Screen NEGATIVE Tricyclics Screen Ur Phencyclidine Scrn NEGATIVE Ur Amphetamines Screen NEGATIVE U Methamphetamin-MDMA NEGATIVE U Benzodiazepines Scrn POSITIVE H Urine Cocaine Screen NEGATIVE U Cannabinoids Screen NEGATIVE Ur Drug Screen Comment Blood Type Antibody Screen 06/07/19 02:25 WBC RBC Hgb Hct MCV MCH MCHC RDW Std Deviation RDW Coeff of Roman Plt Count MPV Immature Gran % (Auto) Neut % (Auto) Lymph % (Auto) [place] % (Auto) Eos % (Auto) Baso % (Auto) Absolute Neuts (auto) Absolute Lymphs (auto) Nucleated RBC % PT INR APTT Creatinine Estim Creat Clear Calc Est GFR (MDRD) Af Amer Est GFR (MDRD) Non-Af Uric Acid AST ALT U Random Total Protein Urine Creatinine Protein/Creatinin Ratio Urine Opiates Screen Urine Methadone Screen Ur Barbiturates Screen Tricyclics Screen Negative Ur Phencyclidine Scrn Ur Amphetamines Screen U Methamphetamin-MDMA U Benzodiazepines Scrn Urine Cocaine Screen U Cannabinoids Screen Ur Drug Screen Comment Blood Type Antibody Screen Medical Necessity - Tobacco Use Smoking Status: Former smoker Assessment/Plan All Active Problems Gestational hypertension (Acute) 37 weeks gestation of (Acute) IVDU (intravenous drug user) (Acute) Assessment: 31yo at 37w 37w2d gestation by L=12w6d Preeclampsia Hx of alcoholism and IV drug abuse, on Subutex Urine positive for benzodiazepenes GBS culture pending, no risk factors at this time Cervical change occurring, now Carter score 6 Cat 1 FHTs Plan: Pitocin IOL 4 hours after last Cytec administration Plan Measurement Technician at delivery Anticipate vaginal delivery
[2019-06-07] MEDS: BUPRENORPHINE HCL 8 MG TAB.SUBL 10 MG SL ×2 (09:19→14:42)
[2019-06-07] MEDS: Oxytocin 30 units/NS 500 ml 30 UNITS/500 ML IV.SOLN IV (11:35)
[2019-06-07] MEDS: Lactated Ringers 1,000 ML 50 ML IV ×2 (11:41→20:23)
--- NOTE | 2019-06-07 14:25 | PCM.PN.OB ---
Subjective: Feeling cramping, states tolerable; denies SMITH, epigastric pain, visual disturbances or nausea Objective: Afebrile, pulses normal, BPs 140s-150s over 80s-90s with one outlier of 167/93 FHTs: 130 baseline, minimal variability, no accels, no decels Contractions: none Pitocin 4 mu Cervix: 2.5/50/-3, soft, mid position - Physical Exam General: Alert, Oriented x3, Cooperative, No apparent distress HEENT: PERRLA, EOMI Oral: Moist Mucosa Neck: Supple Extremities: Capillary Refill Less than 3 Seconds Musculoskeletal: No Tenderness to Palpation of Joints or Extremities Neurological: Cranial nerves II-XII grossly intact, Deep Tendon Reflexes 2+/4 and Symmetrical Psych/Mental Status: Normal Affect, Appropriate, Alert and oriented to time, place, person, mood and affect Weight: 253 lb 1.451 oz Body Mass Index (BMI) 39.6 Laboratory Tests Past 24 Hrs 06/06/19 06/06/19 06/06/19 18:50 18:50 18:50 WBC 9.9 RBC 3.82 L Hgb 11.2 L Hct 34.9 L MCV 91.4 MCH 29.3 MCHC 32.1 RDW Std Deviation 41.1 RDW Coeff of Roman 12.5 Plt Count 191 MPV 11.7 Immature Gran % (Auto) 0.900 Neut % (Auto) 73.4 H Lymph % (Auto) 17.9 L [place] % (Auto) 6.6 Eos % (Auto) 0.9 Baso % (Auto) 0.3 Absolute Neuts (auto) 7.3 Absolute Lymphs (auto) 1.78 Nucleated RBC % 0 PT 13.0 INR 1.0 APTT 28.4 Creatinine Estim Creat Clear Calc Est GFR (MDRD) Af Amer Est GFR (MDRD) Non-Af Uric Acid AST ALT U Random Total Protein Urine Creatinine Protein/Creatinin Ratio Urine Opiates Screen Urine Methadone Screen Ur Barbiturates Screen Tricyclics Screen Ur Phencyclidine Scrn Ur Amphetamines Screen U Methamphetamin-MDMA U Benzodiazepines Scrn Urine Cocaine Screen U Cannabinoids Screen Ur Drug Screen Comment Blood Type O POSITIVE Antibody Screen NEGATIVE 06/06/19 06/06/19 06/07/19 18:50 19:00 02:25 WBC RBC Hgb Hct MCV MCH MCHC RDW Std Deviation RDW Coeff of Roman Plt Count MPV Immature Gran % (Auto) Neut % (Auto) Lymph % (Auto) [place] % (Auto) Eos % (Auto) Baso % (Auto) Absolute Neuts (auto) Absolute Lymphs (auto) Nucleated RBC % PT INR APTT Creatinine 0.47 L Estim Creat Clear Calc 159.37 Est GFR (MDRD) Af Amer 190 Est GFR (MDRD) Non-Af 157 Uric Acid 3.8 AST 21 ALT 23 U Random Total Protein 12.9 H Urine Creatinine 42.50 Protein/Creatinin Ratio 304 H Urine Opiates Screen NEGATIVE Urine Methadone Screen NEGATIVE Ur Barbiturates Screen NEGATIVE Tricyclics Screen Ur Phencyclidine Scrn NEGATIVE Ur Amphetamines Screen NEGATIVE U Methamphetamin-MDMA NEGATIVE U Benzodiazepines Scrn POSITIVE H Urine Cocaine Screen NEGATIVE U Cannabinoids Screen NEGATIVE Ur Drug Screen Comment Blood Type Antibody Screen 06/07/19 02:25 WBC RBC Hgb Hct MCV MCH MCHC RDW Std Deviation RDW Coeff of Roman Plt Count MPV Immature Gran % (Auto) Neut % (Auto) Lymph % (Auto) [place] % (Auto) Eos % (Auto) Baso % (Auto) Absolute Neuts (auto) Absolute Lymphs (auto) Nucleated RBC % PT INR APTT Creatinine Estim Creat Clear Calc Est GFR (MDRD) Af Amer Est GFR (MDRD) Non-Af Uric Acid AST ALT U Random Total Protein Urine Creatinine Protein/Creatinin Ratio Urine Opiates Screen Urine Methadone Screen Ur Barbiturates Screen Tricyclics Screen Negative Ur Phencyclidine Scrn Ur Amphetamines Screen U Methamphetamin-MDMA U Benzodiazepines Scrn Urine Cocaine Screen U Cannabinoids Screen Ur Drug Screen Comment Blood Type Antibody Screen Medical Necessity - Tobacco Use Smoking Status: Former smoker Assessment/Plan All Active Problems Gestational hypertension (Acute) 37 weeks gestation of (Acute) IVDU (intravenous drug user) (Acute) Assessment: 31yo at 37w 37w2d gestation by L=12w6d Preeclampsia Hx of alcoholism and IV drug abuse, on Subutex Urine positive for benzodiazepenes GBS culture pending, no risk factors at this time No further cervical change Cat 2 FHTs Plan: Continue pitocin to achieve adequate labor Plan Dealer Development Manager at delivery
--- NOTE | 2019-06-07 17:49 | PN.OBGYN_ITS ---
Subjective: Continues to report mild, tolerable cramping; continues to deny s/s hypertension Objective: Afebrile, pulses normal, BPs ranging from 142/75, 151/74, 175/94 FHTs: 125 baseline, moderate variability, with accels, no decels UCs: Q 4-5 Cervix: 2.5/50/-3, soft, mid position Pitocin 10 mu - Physical Exam General: Alert, Oriented x3, Cooperative, No apparent distress HEENT: PERRLA, EOMI Oral: Moist Mucosa Neck: Supple Extremities: No Calf Tenderness Neurological: Cranial nerves II-XII grossly intact, Deep Tendon Reflexes 2+/4 and Symmetrical Psych/Mental Status: Normal Affect, Appropriate, Alert and oriented to time, place, person, mood and affect Weight: 253 lb 1.451 oz Body Mass Index (BMI) 39.6 Intake and Output for Last 24 Hours 06/05/19 06/06/19 06/07/19 23:59 23:59 23:59 Intake Total 144.16 / 144.16 Balance 144.16 / 144.16 Laboratory Tests Past 24 Hrs 06/06/19 06/06/19 06/06/19 18:50 18:50 18:50 WBC 9.9 RBC 3.82 L Hgb 11.2 L Hct 34.9 L MCV 91.4 MCH 29.3 MCHC 32.1 RDW Std Deviation 41.1 RDW Coeff of Roman 12.5 Plt Count 191 MPV 11.7 Immature Gran % (Auto) 0.900 Neut % (Auto) 73.4 H Lymph % (Auto) 17.9 L [place] % (Auto) 6.6 Eos % (Auto) 0.9 Baso % (Auto) 0.3 Absolute Neuts (auto) 7.3 Absolute Lymphs (auto) 1.78 Nucleated RBC % 0 PT 13.0 INR 1.0 APTT 28.4 Creatinine Estim Creat Clear Calc Est GFR (MDRD) Af Amer Est GFR (MDRD) Non-Af Uric Acid AST ALT U Random Total Protein Urine Creatinine Protein/Creatinin Ratio Urine Opiates Screen Urine Methadone Screen Ur Barbiturates Screen Tricyclics Screen Ur Phencyclidine Scrn Ur Amphetamines Screen U Methamphetamin-MDMA U Benzodiazepines Scrn Urine Cocaine Screen U Cannabinoids Screen Ur Drug Screen Comment Blood Type O POSITIVE Antibody Screen NEGATIVE 10/06/06/19 06/07/19 18:50 19:00 02:25 WBC RBC Hgb Hct MCV MCH MCHC RDW Std Deviation RDW Coeff of Roman Plt Count MPV Immature Gran % (Auto) Neut % (Auto) Lymph % (Auto) [place] % (Auto) Eos % (Auto) Baso % (Auto) Absolute Neuts (auto) Absolute Lymphs (auto) Nucleated RBC % PT INR APTT Creatinine 0.47 L Estim Creat Clear Calc 159.37 Est GFR (MDRD) Af Amer 190 Est GFR (MDRD) Non-Af 157 Uric Acid 3.8 AST 21 ALT 23 U Random Total Protein 12.9 H Urine Creatinine 42.50 Protein/Creatinin Ratio 304 H Urine Opiates Screen NEGATIVE Urine Methadone Screen NEGATIVE Ur Barbiturates Screen NEGATIVE Tricyclics Screen Ur Phencyclidine Scrn NEGATIVE Ur Amphetamines Screen NEGATIVE U Methamphetamin-MDMA NEGATIVE U Benzodiazepines Scrn POSITIVE H Urine Cocaine Screen NEGATIVE U Cannabinoids Screen NEGATIVE Ur Drug Screen Comment Blood Type Antibody Screen 06/07/19 02:25 WBC RBC Hgb Hct MCV MCH MCHC RDW Std Deviation RDW Coeff of Roman Plt Count MPV Immature Gran % (Auto) Neut % (Auto) Lymph % (Auto) [place] % (Auto) Eos % (Auto) Baso % (Auto) Absolute Neuts (auto) Absolute Lymphs (auto) Nucleated RBC % PT INR APTT Creatinine Estim Creat Clear Calc Est GFR (MDRD) Af Amer Est GFR (MDRD) Non-Af Uric Acid AST ALT U Random Total Protein Urine Creatinine Protein/Creatinin Ratio Urine Opiates Screen Urine Methadone Screen Ur Barbiturates Screen Tricyclics Screen Negative Ur Phencyclidine Scrn Ur Amphetamines Screen U Methamphetamin-MDMA U Benzodiazepines Scrn Urine Cocaine Screen U Cannabinoids Screen Ur Drug Screen Comment Blood Type Antibody Screen Medical Necessity - Tobacco Use Smoking Status: Former smoker Assessment/Plan All Active Problems Gestational hypertension (Acute) 37 weeks gestation of (Acute) IVDU (intravenous drug user) (Acute) Assessment: 31yo at 37w 37w2d gestation by L=12w6d Preeclampsia Hx of alcoholism and IV drug abuse, on Subutex Urine positive for benzodiazepenes GBS culture pending, no risk factors at this time No further cervical change Cat 2 FHTs Plan: Continue pitocin to achieve adequate labor Plan Line Controller at delivery
[2019-06-08] VITALS (7 sets, daily range): BP systolic 112–171; BP diastolic 63–83; PULSE 70–96; RESP 16–18; TEMP 36.3–36.9
--- NOTE | 2019-06-08 00:28 | PCM.PN.OB ---
Subjective: Feeling mild cramping, tolerable; contrinues to deny s/s hypertension Objective: AVSS FHTs: 135 baseline with accels, no decels UCs: Occasional Cervix: Deferred Pitocin: off - Physical Exam General: Alert, Oriented x3, Cooperative, No apparent distress HEENT: PERRLA, EOMI Oral: Moist Mucosa Neck: Supple Neurological: Cranial nerves II-XII grossly intact, Deep Tendon Reflexes 2+/4 and Symmetrical Psych/Mental Status: Normal Affect, Alert and oriented to time, place, person, mood and affect Weight: 253 lb 1.451 oz Body Mass Index (BMI) 39.6 Intake and Output for Last 24 Hours 06/06/19 06/07/19 06/08/19 23:59 23:59 23:59 Intake Total 1090.46 / 1090.46 200.83 / 200.83 Balance 1090.46 / 1090.46 200.83 / 200.83 Laboratory Tests Past 24 Hrs 06/07/19 06/07/19 02:25 02:25 Urine Opiates Screen NEGATIVE Urine Methadone Screen NEGATIVE Ur Barbiturates Screen NEGATIVE Tricyclics Screen Negative Ur Phencyclidine Scrn NEGATIVE Ur Amphetamines Screen NEGATIVE U Methamphetamin-MDMA NEGATIVE U Benzodiazepines Scrn POSITIVE H Urine Cocaine Screen NEGATIVE U Cannabinoids Screen NEGATIVE Ur Drug Screen Comment Medical Necessity - Tobacco Use Smoking Status: Former smoker Assessment/Plan All Active Problems Gestational hypertension (Acute) 37 weeks gestation of (Acute) IVDU (intravenous drug user) (Acute) Assessment: 31yo at 37w 37w2d gestation by L=12w6d Preeclampsia Hx of alcoholism and IV drug abuse, on Subutex Urine positive for benzodiazepenes GBS culture pending, no risk factors at this time No further cervical change Cat 1 FHTs Plan: D/W Dr. Perry Rest pitocin overnight Pt may have regular diet Will reevaluate in AM, consider AROM/internals/restarting pitocin
[2019-06-08] MEDS: 0.9% Saline Lock 10 ML Syringe IV (03:10)
--- NOTE | 2019-06-08 07:02 | PN.OBGYN_ITS ---
Subjective: Patient resting quietly and sleeping this morning. Reports minimal contractions. Blood pressure stable overnight. Cervix 2, 50, -2 station. Pina ficial rupture of membranes with scant fluid which appears clear. Internal monitors for heart tones and contractions placed. Will restart Pitocin. Expect spontaneous vaginal delivery. - Physical Exam Weight: 253 lb 1.451 oz Body Mass Index (BMI) 39.6 Intake and Output for Last 24 Hours 06/06/19 06/07/19 06/08/19 23:59 23:59 23:59 Intake Total 1090.46 / 1090.46 200.83 / 200.83 Balance 1090.46 / 1090.46 200.83 / 200.83 Medical Necessity - Tobacco Use Smoking Status: Former smoker Assessment/Plan All Active Problems Gestational hypertension (Acute) 37 weeks gestation of (Acute) IVDU (intravenous drug user) (Acute)
[2019-06-08] MEDS: BUPRENORPHINE HCL 8 MG TAB.SUBL 10 MG SL ×2 (07:24→14:00)
[2019-06-08] MEDS: fentaNYL-bupivacaine (epidural) 100 ML BAG EPIDURAL ×2 (10:53→14:11)
[2019-06-08] MEDS: Lactated Ringers 1,000 ML 50 ML IV (14:03)
[2019-06-08] MEDS: Lactated Ringers 500 ML IV.SOLN. IV (14:33)
[2019-06-08] MEDS: Lactated Ringers 500 ML 999 ML IV (14:38)
[2019-06-08] MEDS: Oxytocin 30 units/NS 500 ml 30 UNITS/500 ML IV.SOLN 334 UNITS IV (16:38)
--- NOTE | 2019-06-08 17:34 | PCM.OPRPT ---
Vaginal Delivery Maternal Presentation: Medically Indicated Induction 31yo at 37w4d gestation by L=12w6d US w/hx of preeclampsia, in recovery from drug abuse/alcoholism, on Suboxone Method of Induction: Pitocin, Cytotec Medical Reason for Induction: Preeclampsia, eclampsia Amniotic Membrane Rupture Type: Artificial Rupture of Membrane time: 758 Amniotic Fluid Description: Clear Final DOROTHY: 06/25/19 Final DOROTHY Source: US <20 weeks Gestational age: 37 Weeks and 4 Days Date of Procedure: 06/08/19 Post-Operative Diagnosis: Surgery/ Procedure Performed: Spontaneous Vaginal Delivery Type of Anesthesia: Epidural Description of Procedure: Pushed well and delivered a vigorous male over a 2nd degree midline perineal laceration, OA to DIPIKA; shoulders followed easily, infant placed on mother's abdomen, dried, stimulated and bulb suctioned, APGARS 8/9; placenta delivered spontaneously, Dotty mechanism, intact, 3-vessel cord, marginal insertion; perineal laceration repaired with 3-0 Vicryl Rapide and 3-0 Vicryl, good hemostasis obtained; EBL 250ml Lap sponge, Raytec, sharps and instrument counts correct x 2 with RN Presentation: Vertex, DIPIKA Placental Delivery Description: Spontaneous Placenta Disposition: [facility] Cord Vessel Description: 3 Vessels Infant A gender: Male Episiotomy Description: None Laceration: Midline, 2nd degree Medications given after delivery: IV Pitocin
--- NOTE | 2019-06-08 18:12 | DCINST_ITS ---
Discharge Diet: No Restrictions Discharge Activity: May Drive, May Shower, May Take a Tub Bath Return to work on:: 07/20/19 May resume sexual activity in: 6-8 weeks Weight Bearing Status: Weight bearing as tolerated Lifting Restrictions: Nothing heavier than the baby for two weeks Additional Activity Instructions:: Rest on L side as much as possible at home; No cooking, cleaning, shopping for two weeks; no long car trips for two weeks; 12 hours sleep daily for the first two weeks; - sleep when the baby sleeps Additional Instructions: If you experience any of the following, contact your healthcare provider. * Bleeding that soaks a pad every hour for 2 hours * Fever 100.4 or higher * Unrelieved incision or abdominal pain * Swelling, redness, discharge or bleeding from your incision or episiotomy site * Your incision begins to separate * Problems urinating (including inability to urinate or burning while urinating). * Visual changes * Severe headache * Flu-like symptoms * Pain or redness in one of both of your breasts * Pain, warmth, tenderness or swelling in your legs, especially the calf area * Frequent nausea and vomiting * Symptoms of depression or anxiety If you experience any of the following, call 911 or go to the nearest Emergency Room. * Chest pain * Problems breathing * Seizure activity * Partial or complete paralysis of a body part, slurred speech, weakness or drooping of the face, or a sudden inability to walk or hold your balance Allergies/Adverse Reactions: Allergies salmon Allergy (Uncoded 11/04/17 11:36) Swelling Medications to take at Discharge Buprenorphine HCl/Naloxone HCl [Suboxone 8 mg-2 mg Sl Film] 4 mg SUBLINGUAL TID 07/11/16 Bisacodyl [Dulcolax] 10 mg RECTAL UD PRN suppos. 06/10/19 Dibucaine 1 applic TOPICAL TID PRN PRN tube 06/10/19 Hydrocortisone 2.5% Crm [Hytone] 1 applic TOPICAL TID PRN PRN tube 06/10/19 Ibuprofen [Motrin] 600 mg PO Q6H PRN PRN tablet 06/10/19 Nifedipine [Nifedipine ER] 60 mg PO DAILY 30 Days #30 tab.er.24 06/10/19 Nitrofurantoin Monohyd/M-Cryst [Macrobid 100 mg Capsule] 100 mg PO BID 5 Days #10 capsule 06/10/19 Phenazopyridine [Pyridium] 100 mg PO TID 3 Days #6 tablet 06/10/19 Senna/Docusate Sodium [Senokot-S] 1 - 2 tablet PO DAILY PRN PRN tablet 06/10/19 Please Follow Up With: Hai Perry MD When: Follow up in office with Dr. Perry tomorrow for blood pressure check; schedule appointment for 2 week follow up, and 6 week follow up; you may need to be seen more frequently depending on blood pressure results. Primary Care Physician: Care Physician,No Primary [Primary Care Provider] - Test Results: Test results from this visit will be discussed in further detail at your follow- up appointment, if applicable. Proposed Discharge Date: 06/10/19
--- NOTE | 2019-06-08 18:29 | PCM.PN.OB ---
Subjective: Pt without complaint, denies s/s pp preeclampsia Objective: Afebrile, pulse WNL, most recent BPs 175/89 and 169/74 10 minutes apart - Physical Exam General: Alert, Oriented x3, Cooperative, No apparent distress HEENT: PERRLA, EOMI Oral: Moist Mucosa Neck: Supple Neurological: Cranial nerves II-XII grossly intact Psych/Mental Status: Normal Affect, Appropriate, Alert and oriented to time, place, person, mood and affect Weight: 253 lb 1.451 oz Body Mass Index (BMI) 39.6 Intake and Output for Last 24 Hours 06/06/19 06/07/19 06/08/19 23:59 23:59 23:59 Intake Total 1090.46 / 1090.46 2790.83 / 2790.83 Output Total 1000 / 1000 Balance 1090.46 / 1090.46 1790.83 / 1790.83 Medical Necessity - Tobacco Use Smoking Status: Former smoker Assessment/Plan All Active Problems Gestational hypertension (Acute) 37 weeks gestation of (Acute) IVDU (intravenous drug user) (Acute) Assessment: 31yo G5 now [id number] delivered [id number] gestation by L=12w6d Preeclampsia Hx of alcoholism and IV drug abuse, on Subutex Urine positive for benzodiazepenes Elevated blood pressures within two hours of delivery Plan: D/W Dr. Perry Begin Hypertension Protocol, magnesium sulfate therapy, 6 gm bolus then 2gm hourly
[2019-06-08] MEDS: Magnesium Sulfate 4gm/100mL 2 GM/50 ML IV.SOLN. IV (18:42)
[2019-06-08] MEDS: Magnesium Sulfate 4gm/100mL 4 GM/100 ML IV.SOLN. IV (18:53)
[2019-06-08] MEDS: Magnesium Sulfate 20 GM/500 ML BAG IV (19:08)
[2019-06-08] MEDS: Lactated Ringers 1,000 ML 15 ML IV (19:08)
[2019-06-08] MEDS: Labetalol 100 MG Tablet PO (19:33)
[2019-06-08 19:57] LABS: Hematocrit 35.6 % (37-47); Hemoglobin 12.2 g/dL (12.0-15.0); Mean Corp Hgb Conc 34.3 g/dL (32-36); Mean Corpuscular Hgb 30.5 pg (27.0-32.0); Mean Platelet Vol. 11.4 fl (6.2-12.0); Platelet Count 170 K/mm3 (150-450); RBC Distribution Width CV 12.3 % (11.6-14.6); RBC Distribution Width SD 39.9 fl (35.1-43.9); White Blood Count 17.4 K/mm3 (4.4-11.0)
[2019-06-08 20:11] LABS: International Normalized Ratio 0.9; Prothrombin Time (Protime)PT. 12.4 SECONDS (11.7-14.9)
[2019-06-08 20:14] LABS: AST(SGOT) 20 U/L (15-37); Alanine Aminotransfer ALT/SGPT 21 U/L (13-56); Creatinine, Serum 0.66 mg/dL (0.55-1.02); EST Glomerular Filtration Rate 106 mL/min (>60); Est Glom Filt Rate - Afr Amer 129 mL/min (>60); Estimated Creatinine Clearance 113.49 ml/min
[2019-06-08] MEDS: Ibuprofen 600 MG Tablet PO (22:16)
[2019-06-09] VITALS (12 sets, daily range): BP systolic 98–148; BP diastolic 54–83; PULSE 62–91; RESP 16–18; TEMP 35.7–37.1; O2SAT 96–98
[2019-06-09] MEDS: Magnesium Sulfate 20 GM/500 ML BAG IV (03:39)
[2019-06-09 04:02] LABS: Hematocrit 31.4 % (37-47); Hemoglobin 10.1 g/dL (12.0-15.0); Mean Corp Hgb Conc 32.2 g/dL (32-36); Mean Corpuscular Hgb 29.8 pg (27.0-32.0); Mean Corpuscular Volume 92.6 fL (81-99); Mean Platelet Vol. 11.9 fl (6.2-12.0); Platelet Count 163 K/mm3 (150-450); RBC Distribution Width CV 12.6 % (11.6-14.6); RBC Distribution Width SD 42.5 fl (35.1-43.9); Red Blood Count 3.39 M/mm3 (4.2-5.4); White Blood Count 11.8 K/mm3 (4.4-11.0)
[2019-06-09 04:33] LABS: Magnesium 5.1 mg/dL (1.6-2.6)
[2019-06-09] MEDS: BUPRENORPHINE HCL 8 MG TAB.SUBL 10 MG SL ×2 (07:06→12:44)
[2019-06-09] MEDS: Ibuprofen 600 MG Tablet PO (09:15)
--- NOTE | 2019-06-09 09:53 | PN.OBGYN_ITS ---
Subjective: Patient without complaints. Denies any PIH symptoms. Baby to [place] for respiratory issues. Magnesium sulfate decreased to 1 g/h during the night due to reduced deep tendon reflexes and blood pressures being low. Denies any increased vaginal bleeding. - Physical Exam Vital Signs Temp Pulse Resp BP Pulse Ox 97.8 F 71 18 113/63 98 06/09/19 07:50 06/09/19 07:50 06/09/19 07:50 06/09/19 07:50 06/09/19 07:50 Oxygen Delivery Method Room Air Weight: 253 lb 1.451 oz Body Mass Index (BMI) 39.6 Intake and Output for Last 24 Hours 06/07/19 06/08/19 06/09/19 23:59 23:59 23:59 Intake Total 1090.46 / 1090.46 4417.75 / 4417.75 1138.76 / 1138.76 Output Total 2925 / 2925 469 / 469 Balance 1090.46 / 1090.46 1492.75 / 1492.75 669.76 / 669.76 Laboratory Tests Past 24 Hrs 06/08/19 06/08/19 06/08/19 19:48 19:48 19:48 WBC 17.4 H RBC 4.00 L Hgb 12.2 Hct 35.6 L MCV 89.0 MCH 30.5 MCHC 34.3 RDW Std Deviation 39.9 RDW Coeff of Roman 12.3 Plt Count 170 MPV 11.4 PT 12.4 INR 0.9 APTT 26.0 Creatinine 0.66 Estim Creat Clear Calc 113.49 Est GFR (MDRD) Af Amer 129 Est GFR (MDRD) Non-Af 106 Uric Acid 4.0 Magnesium AST 20 ALT 21 06/09/19 06/09/19 03:40 03:40 WBC 11.8 H RBC 3.39 L Hgb 10.1 L Hct 31.4 L MCV 92.6 MCH 29.8 MCHC 32.2 RDW Std Deviation 42.5 RDW Coeff of Roman 12.6 Plt Count 163 MPV 11.9 PT INR APTT Creatinine Estim Creat Clear Calc Est GFR (MDRD) Af Amer Est GFR (MDRD) Non-Af Uric Acid Magnesium 5.1 H* AST ALT Medical Necessity - Tobacco Use Smoking Status: Former smoker Assessment/Plan All Active Problems Gestational hypertension (Acute) 37 weeks gestation of (Acute) IVDU (intravenous drug user) (Acute) Doing well day #1 status post routine spontaneous vaginal delivery. Will discontinue magnesium sulfate and labetalol. Will monitor today for blood pressure and if remains stable consider discharge tomorrow. Continuing Suboxone at doses same as before delivery.
[2019-06-09] MEDS: Senna/Docusate Sodium 1 Tablet PO (15:13)
--- NOTE | 2019-06-09 22:47 | NURSING ---
this RN instructed mother to pump every 3 hours. mother reviewed pumping instructions and states to call this RN for assistance, if needed.
--- NOTE | 2019-06-10 01:28 | NURSING ---
report given to patel ALLEN. she is to assume care of pt at this time.
[2019-06-10 01:30] VITALS: BP 127/75; PULSE 69; RESP 16; TEMP 36.9
[2019-06-10] MEDS: Senna/Docusate Sodium 1 Tablet PO (06:40)
[2019-06-10] MEDS: BUPRENORPHINE HCL 8 MG TAB.SUBL 10 MG SL (06:40)
[2019-06-10 08:30] VITALS: BP 165/90; PULSE 91; RESP 16; TEMP 36.4
[2019-06-10 08:45] VITALS: BP 164/77
--- NOTE | 2019-06-10 09:02 | PCM.PN.OB ---
Subjective: Pain well controlled, has been up walking around unit; reports burning with urination and a feeling of not fully emptying her bladder when she urinates; tolerating diet, passing flatus; denies SMITH, visual changes, epigstric pain; infant in NICU at [facility], pt would like to be DC'd home today Objective: Afebrile, BP at 0800 165/90, 164/77 at 0815 Fundus firm, U/2, lochia scant 2nd degre perineal tear well approximated, minimal edema, no drainage noted Reflexes 2+ bilaterally upper and lower extremities, no clonus - Physical Exam Vitals/I&O's: Vital Signs Temp Pulse Resp BP Pulse Ox 98.4 F 69 16 127/75 H 97 06/10/19 01:30 06/10/19 01:30 06/10/19 01:30 06/10/19 01:30 06/09/19 19:55 Oxygen Delivery Method Room Air Weight: 253 lb 1.451 oz Body Mass Index (BMI) 39.6 Intake and Output for Last 24 Hours 06/08/19 06/09/19 06/10/19 23:59 23:59 23:59 Intake Total 4417.75 / 4417.75 1651.26 / 1651.26 Output Total 2925 / 2925 1089 / 1089 Balance 1492.75 / 1492.75 562.26 / 562.26 General: Alert, Oriented x3, Cooperative HEENT: PERRLA, EOMI Oral: Moist Mucosa Neck: Supple Lungs: Clear to auscultation, Normal air movement Cardiovascular: Regular rate, Regular Rhythm Abdomen: Bowel Sounds Present, Soft, Non Tender, Passing Flatus Extremities: Capillary Refill Less than 3 Seconds, Peripheral Pulses Normal Skin: No rashes Musculoskeletal: No Tenderness to Palpation of Joints or Extremities Neurological: Cranial nerves II-XII grossly intact, Deep Tendon Reflexes 2+/4 and Symmetrical Psych/Mental Status: Normal Affect, Appropriate, Alert and oriented to time, place, person, mood and affect Current Medications Bisacodyl (Dulcolax) 10 mg RECTAL UD PRN PRN Reason: If no BM Dibucaine (Dibucaine) 1 applic TOPICAL TID PRN PRN; Protocol PRN Reason: Discomfort Hydrocortisone (Hytone) 1 applic TOPICAL TID PRN PRN; Protocol PRN Reason: Discomfort Ibuprofen (Motrin) 600 mg PO Q6H PRN PRN PRN Reason: Pain Score 1-3/10 Last Admin: 06/09/19 09:15 Dose: 600 mg Documented by: Senna/Docusate Sodium (Senokot-S, Petra-Colace) 1 - 2 tablet PO DAILY PRN PRN PRN Reason: Constipation Last Admin: 06/10/19 06:40 Dose: 2 tablet Medical Necessity - Tobacco Use Smoking Status: Former smoker Assessment/Plan All Active Problems Gestational hypertension (Acute) 37 weeks gestation of (Acute) IVDU (intravenous drug user) (Acute) Assessment: 31yo G5 now [id number] delivered qn50m2h gestation by L=12w6d Preeclampsia Hx of alcoholism and IV drug abuse, on Subutex Urine positive for benzodiazepenes PP day #2, elevated blood pressures this AM s/p PP magnesium sulfate PP day #1 Occasional constipation UTI Plan: D/W Dr. Perry Discharge teaching completed DC home today Continue Subutex home medication as prescribed Rx for Ibuprofen, Macrobid, Pyridium, Colace Rx for Procardia XL, 60mg PO QD per Dr. Perry RTO tomorrow for BP check, will determine frequency of future visits at that time Will discuss Nexplanon insertion at 6 week PP checkup
[2019-06-10 09:15] LABS: Bacteria 0 SEEN /hpf (None Seen); Mucous, Urine 0 SEEN /hpf (<or=2+)
[2019-06-10 09:17] LABS: Color, Urine Red (Yellow); Glucose, Dipstick Normal (Normal); Ketone-Dipstick Negative (Negative); Leukocyte Esterase-Dipstick 500 /ul (Negative); Nitrite-Dipstick Negative (Negative); Occult Blood-Urine 250 /ul (Negative); Protein-Dipstick 100 mg/dl (Negative); Urine Bilirubin Dipstick Negative (Negative); Urine Clarity Cloudy (Clear); Urine Urobilinogen Normal (Normal)
[2019-06-10 09:23] LABS: Red Blood Cells-Urine > 100 SEEN /hpf (0-5); Squamous Epithelial Cells - UA 5-10 SEEN /hpf (5-10); White Blood Cells >100 SEEN /hpf (0-5)
--- NOTE | 2019-06-10 11:11 | NURSING ---
IBCLC round at 0910. Mother is happy with current pumping plan. Encouraged pumping every 2 to 3 hours and/or 8x in a 24 hour period. Mother says she really wants to stick with it and has a good pump at home to use at well. encouraged getting continued support at [place] when she is there with her baby and mother indicated understanding of her resources with support post discharge as well.
[2019-06-10] MEDS: NIFEdipine 60 MG Tablet PO ×2 (11:37)
[2019-06-10] MEDS: Phenazopyridine 95 MG Tablet 190 MG PO ×2 (11:37→11:45)
[2019-06-10] MEDS: Nitrofurantoin Macrocrystals 100 MG Capsule PO (11:45)
[2019-06-10 12:00] VITALS: BP 161/78; PULSE 90; RESP 17; TEMP 36.6
--- NOTE | 2019-06-10 12:49 | NURSING ---
LE: Called JOANA Nunes at 1000 and notified of BP's 165/90 & 164/77. Pt denies SMITH, visual disturbances, RUQ pain, reflexes + 2, +1 pedal edema. Des stating she will notify and call back with orders. 1100:Des called back with discharge orders to home with a follow up 06/11/19 @ 0900 BP check, start Procardia XL 60 mg now then Daily. 1115:Discharge instructions and pre eclampsia instructions given to pt. Verbalized understanding. Des also encouraged pt to rest on left lateral often. Pt verb understanding. Dc'd to home at 1130.
--- NOTE | 2019-07-02 19:00 | PCM.DC.BLA ---
Discharge Summary Date of Admission: 06/06/19 Date of Discharge: 06/10/19 Summary: Procedure: Spontaneous vaginal delivery on 06/08/2019 History of this : Mary is a 31yo at 37w 37w2d gestation by L=12w6d US admitted for medically necessary IOL for preeclampsia as evidenced by elevated blood pressures and proteinuria. She has a history of alcoholism, and IV drug abuse and is currently on Suboxone; She reports active FM, denies VB, LOF, SMITH, epigastric pain, nausea or visual disturbances. A Group B Strep culture is pending, she has no risk factors at this time. Physical Exam: Unremarkable except cervix was unripe Hospital Course: Patient presented in the evening on hospital day 1 for Cytotec and then Pitocin induction. She eventually progressed to approximately 2 cm dilation by early a.m. of hospital day #3. Rupture of membranes was completed and patient progressed and delivered without complication. she developed elevated blood pressures and it was necessary to start the patient on magnesium sulfate. This was stopped after observing overnight and she was eventually placed on Procardia XL 60 mg daily before it was felt that she was ready for discharge on day #2. Throughout hospitalization the patient was maintained on her normal home dose of Suboxone. Discharge Instructions and Follow-Up: Patient was instructed not to drive for several days, not to put anything in the vagina for a month and to call the office for an appointment in 1 to 2 days and then 6 weeks. She was given a prescription for Procardia XL 60 mg to be used daily and was instructed to continue vitamins with iron. She was also instructed to call with any symptoms of toxemia. - Physical Exam Vitals/I&O's: Vital Signs Temp Pulse Resp BP Pulse Ox 97.9 F 90 17 161/78 H 97 06/10/19 12:00 06/10/19 12:00 06/10/19 12:00 06/10/19 12:00 06/09/19 19:55 Oxygen Delivery Method Room Air Weight: 253 lb 1.451 oz Body Mass Index (BMI) 39.6
== END 2019-06-10 12:15 | disposition home or self-care (01) | DRG 560 ==
PROVIDERS: Advanced Practice Midwife; Admitting Provider Obstetrics & Gynecology; Referring Provider Obstetrics & Gynecology; Visit Provider Obstetrics & Gynecology
DX: O14.94 Unspecified pre-eclampsia, complicating childbirth (principal); O70.1 Second degree perineal laceration during delivery; O60.14X0 Preterm labor third trimester with preterm delivery third trimester, not applicable or unspecified; O99.324 Drug use complicating childbirth; F19.10 Other psychoactive substance abuse, uncomplicated; F10.21 Alcohol dependence, in remission; Z3A.37 37 weeks gestation of pregnancy; Z37.0 Single live birth; Y90.9 Presence of alcohol in blood, level not specified; Z87.891 Personal history of nicotine dependence
CPT/HCPCS: 36415; 59025; 59050; 80307; 81001; 81050; 82565; 82570; 83735; 84156; 84450; 84460; 84550; 85025; 85027; 85610; 85730; 86850; 86900; 86901; 99218; J7120; A4216; G0378

== ENCOUNTER 2019-08-02 08:40 | Emergency (ER) | payer MEDICAID, SELFPAY ==
[2019-08-02 08:40] VITALS: BP 162/96; PULSE 76; RESP 16; TEMP 36.7; O2SAT 97; BMI 37.5
--- NOTE | 2019-08-02 08:46 | ED.VIS.GEN ---
History of Present Illness Chief Complaint: Abscess Informant: Patient Onset: Weeks - 1 week Context: Gradual Onset Current Severity: Moderate Maximum Severity: Moderate Narrative: Patient presents with what she believes is an infected cyst over her left collarbone. She states she had a small bump there for approximately a year, potentially a sebaceous cyst. Over the past week it is enlarged in size and become red in color. He denies fever or chills. There has been no spontaneous drainage. Past Medical History - Allergies and Home Meds Allergies/Adverse Reactions: Allergies salmon Allergy (Uncoded 08/02/19 08:40) Swelling Primary Care Physician: Armen Smith MD [Primary Care Provider] - Past Medical History: - - Patient denies significant past medical history. Surgical History: no surgical history Lives: With Family Smoking Status: Former smoker Review of Systems General: Denies: Chills, Fever Eyes: Denies: Visual changes - bilaterally ENT: Denies: Bilateral ear pain Cardiovascular: Denies: Chest pain, Palpitations Respiratory: Denies: Dyspnea, Cough, Sputum Gastrointestinal: Denies: Abdominal pain, Nausea, Vomiting, Diarrhea Genitourinary: Denies: Dysuria Skin: Reports: Abscess Neurological: Denies: Headache Hematologic: Denies: Easy bruising, Easy bleeding Physical Exam Vital Signs/Narrative: Vital Signs Temp Pulse Resp BP Pulse Ox 08/02/19 08:40 98.0 F 76 16 162/96 H 97 Inital Vital Signs reviewed: Yes General: Well nourished, Well developed Head: Normocephalic ENT: Moist mucous membranes Neck: Supple Cardiovascular: Regular rate, Regular rhythm, No murmurs Respiratory: No distress, CTA bilaterally Abdomen: Soft, Nontender Skin: - - 2 x 3 cm cyst over the medial left clavicle with overlying erythema. Minimal warmth. Neurological: Alert, Oriented x3 Psychological: Normal affect Diagnostic/Tx/Re-eval - Medical Decision Making Patient is given a dose of Bactrim here. She is already on Keflex. I&D is performed, please see procedure note. Patient will be continued on Bactrim and Keflex at home. Procedures Procedure(s): Patient is consented for I&D of skin abscess/infected sebaceous cyst. 1/2 cc of 1% lidocaine is used over the skin. A 1.5 centimeter incision is made with a #11 blade. There is return of thick sebaceous material. Wound is cleansed and dressed. ED Disposition - Plan for ED Patient: Disposition: Home or Assisted Living Diagnosis: Infected sebaceous cyst, Encounter for incision and drainage procedure Instructions: SEBACEOUS CYST, Infected (I and D) Prescriptions: Smz/Tmp Ds [Bactrim Ds] 1 tab PO BID #20 tab Transmission Status: Pending to [facility] Cephalexin [Keflex] 500 mg PO Q6 #40 cap Transmission Status: Pending to [facility] Referrals: Armen Smith MD [Primary Care Provider] - 1 Week
[2019-08-02] MEDS: Smz/Tmp Ds Tablet 1 TABLET PO (08:50)
== END 2019-08-02 09:17 | disposition home or self-care (01) ==
PROVIDERS: Emergency Provider Emergency Medicine; Family Provider Internal Medicine; PCP Internal Medicine
DX: L72.3 Sebaceous cyst (principal); L08.9 Local infection of the skin and subcutaneous tissue, unspecified; Z87.891 Personal history of nicotine dependence
CPT/HCPCS: 10060; 99283